=== PATIENT | female | born 1965 | race Caucasian/White ===

== ENCOUNTER 2020-08-21 19:32 | Emergency (ER) | payer OTHER ==
[~2020-08-21 19:32] MED LIST: ASPIRIN EC81 MG PO; ATORVASTATIN CA20 MG PO; CLOPIDOGREL75 MG PO; CO Q-1010 MG PO; COZAAR 50MG TAB50 MG PO; CRESTOR10 MG PO; GOODY'S EX-STR1 EAC1 PO; INCRUSE ELLI62.5 MCG INH; IPRAT-ALBUT 0.5-3 ML INH; LEVOFLOXACIN750 MG PO; LOVASTATIN10 MG PO; MECLIZINE HCL25 MG PO; OMEPRAZOLE40 MG PO; PROVENTIL HFA6.7 GM INH; WIXELA 250-501 EACH INH; ZOFRAN 4 MG TAB4 MG PO
[2020-08-21 20:36] LABS: HEMOGLOBIN 14.8 gm/dl (12.3-15.3); RED BLOOD COUNT 5.04 M/UL (4.00-5.10); WHITE BLOOD COUNT 10.1 K/UL (4.5-11.0)
[2020-08-21 20:52] LABS: BUN/CREATININE RATIO 15 (0-10)
[2020-08-21] MEDS ORDERED: OMNICEF 300 MG300 MG PO (22:33)
[2020-08-21] MEDS ORDERED: ZITHROMAX500 MG PO (22:33)
[2021-01-06] MEDS ORDERED: NORVASC5 MG PO (07:33)
[2021-01-06] MEDS ORDERED: CARVEDILOL6.25 MG PO (07:34)
[2021-01-06] MEDS ORDERED: CITALOPRAM HBR10 MG PO (07:35)
[2021-01-06] MEDS ORDERED: VENTOLIN HFA 66.7 GM INH (07:35)
[2021-01-06] MEDS ORDERED: WIXELA 250-501 EACH INH (07:36)
[2021-01-19] MEDS ORDERED: VENTOLIN HFA 66.7 GM INH (11:41)
== END 2020-08-21 23:05 | disposition home or self-care (01) ==
LOC: ER1 19:32
PROVIDERS: Physician Assistant
DX: I73.9 Peripheral vascular disease, unspecified (principal); I77.1 Stricture of artery; J18.9 Pneumonia, unspecified organism; J44.9 Chronic obstructive pulmonary disease, unspecified; F41.0 Panic disorder [episodic paroxysmal anxiety]; R29.701 NIHSS score 1; Z79.82 Long term (current) use of aspirin; Z79.899 Other long term (current) drug therapy
CPT/HCPCS: 70496; 70498; 71250; 80053; 85025; 93005; 96365; 99284; J0696; Q9967

== ENCOUNTER 2020-08-22 11:20 | Emergency (ER) | payer OTHER ==
[~2020-08-22 11:20] MED LIST changes: +OMNICEF 300 MG300 MG PO; +ZITHROMAX500 MG PO
[2020-08-22 14:25] LABS: HEMOGLOBIN 15.6 gm/dl (12.3-15.3); RED BLOOD COUNT 5.33 M/UL (4.00-5.10); WHITE BLOOD COUNT 9.1 K/UL (4.5-11.0)
[2020-08-22 14:58] LABS: BUN/CREATININE RATIO 16 (0-10)
[2021-01-06] MEDS ORDERED: NORVASC5 MG PO (07:33)
[2021-01-06] MEDS ORDERED: CARVEDILOL6.25 MG PO (07:34)
[2021-01-06] MEDS ORDERED: CITALOPRAM HBR10 MG PO (07:35)
[2021-01-06] MEDS ORDERED: VENTOLIN HFA 66.7 GM INH (07:35)
[2021-01-06] MEDS ORDERED: WIXELA 250-501 EACH INH (07:36)
[2021-01-19] MEDS ORDERED: VENTOLIN HFA 66.7 GM INH (11:41)
== END 2020-08-22 17:30 | disposition home or self-care (01) ==
LOC: ER1 11:20
PROVIDERS: Physician Assistant Medical
DX: J18.9 Pneumonia, unspecified organism (principal); R20.2 Paresthesia of skin; J44.9 Chronic obstructive pulmonary disease, unspecified; F17.210 Nicotine dependence, cigarettes, uncomplicated; Z87.442 Personal history of urinary calculi; Z88.1 Allergy status to other antibiotic agents; Z53.20 Procedure and treatment not carried out because of patient's decision for unspecified reasons; Z20.822 Contact with and (suspected) exposure to COVID-19
CPT/HCPCS: 71045; 80053; 82550; 82553; 83605; 83874; 84484; 85025; 87040; 93005; 99285; U0002

== ENCOUNTER → 2020-09-17 | Outpatient (CLI) | payer OTHER ==
[~2020-09-17] MED LIST changes: +CARVEDILOL6.25 MG PO; +CITALOPRAM HBR10 MG PO; +NORVASC5 MG PO; +VENTOLIN HFA 66.7 GM INH
[2020-09-17 10:56] LABS: HEMOGLOBIN 15.4 gm/dl (12.3-15.3); RED BLOOD COUNT 5.16 M/UL (4.00-5.10)
[2020-09-17 11:20] LABS: BUN/CREATININE RATIO 18 (0-10)
== END ==
LOC: OPSV2 10:00
PROVIDERS: Surgery
DX: Z01.818 Encounter for other preprocedural examination (principal); I65.23 Occlusion and stenosis of bilateral carotid arteries; R91.8 Other nonspecific abnormal finding of lung field; J98.11 Atelectasis
CPT/HCPCS: 36415; 71046; 80053; 81001; 85025; 85610; 85730; 86850; 86900; 86901; 93005

== ENCOUNTER → 2020-12-03 | Outpatient (CLI) | payer OTHER | LOC: HEART 5 10:32 | DX: J43.9 Emphysema, unspecified (principal) | CPT/HCPCS: 94060; 94729 ==

== ENCOUNTER → 2020-12-30 | Outpatient (CLI) | payer OTHER | LOC: KOH-I 12-25 11:00 | DX: R91.8 Other nonspecific abnormal finding of lung field (principal); J84.10 Pulmonary fibrosis, unspecified | CPT/HCPCS: 71250 ==

== ENCOUNTER → 2021-01-06 | Day surgery (SDC) | payer OTHER | END | disposition home or self-care (01) | LOC: OR 06:50 | DX: J44.9 Chronic obstructive pulmonary disease, unspecified (principal); F17.210 Nicotine dependence, cigarettes, uncomplicated; K21.9 Gastro-esophageal reflux disease without esophagitis; E78.5 Hyperlipidemia, unspecified; I10 Essential (primary) hypertension; R91.8 Other nonspecific abnormal finding of lung field; R63.4 Abnormal weight loss; J98.4 Other disorders of lung; F41.8 Other specified anxiety disorders; F32.9 Major depressive disorder, single episode, unspecified; Z53.8 Procedure and treatment not carried out for other reasons | CPT/HCPCS: J2001; J2704; J7120 ==

== ENCOUNTER → 2021-01-19 | Day surgery (SDC) | payer OTHER ==
[~2021-01-19] VITALS: Ht 149.9 cm; Wt 38.6 kg
== END | disposition home or self-care (01) ==
LOC: OR 07:30
DX: J84.10 Pulmonary fibrosis, unspecified (principal); J43.9 Emphysema, unspecified; F17.210 Nicotine dependence, cigarettes, uncomplicated; F41.9 Anxiety disorder, unspecified; F32.9 Major depressive disorder, single episode, unspecified; I65.23 Occlusion and stenosis of bilateral carotid arteries; K21.9 Gastro-esophageal reflux disease without esophagitis; E78.5 Hyperlipidemia, unspecified; I10 Essential (primary) hypertension; Z79.82 Long term (current) use of aspirin; Z79.02 Long term (current) use of antithrombotics/antiplatelets; Z79.899 Other long term (current) drug therapy
CPT/HCPCS: 71045; 76000; 87015; 87070; 87116; 87205; 87206; J2704; J7120

== ENCOUNTER → 2021-01-20 | Outpatient (CLI) | payer OTHER | LOC: RAD 08:41 | DX: J95.811 Postprocedural pneumothorax (principal) | CPT/HCPCS: 71046 ==

== ENCOUNTER → 2021-01-22 | Outpatient (CLI) | payer OTHER | LOC: EXRD 15:16 | DX: R91.8 Other nonspecific abnormal finding of lung field (principal); R63.4 Abnormal weight loss; J95.811 Postprocedural pneumothorax | CPT/HCPCS: 71046 ==

== ENCOUNTER → 2022-01-22 | Outpatient (CLI) | payer OTHER | LOC: KOH-I 10:18 | DX: A31.0 Pulmonary mycobacterial infection (principal); R91.8 Other nonspecific abnormal finding of lung field | CPT/HCPCS: 71250 ==